=== PATIENT | male | born 1995 | race Two or more races ===

== ENCOUNTER 2022-06-11 19:53 | Emergency (ER) | payer MEDICAID, OTHER ==
[~2022-06-11] VITALS: Ht 170.2 cm; Wt 143.0 kg
[2022-06-12 00:11] VITALS: BP 139/90
[2022-06-12] MEDS ORDERED: PRED20TA2 PO (00:23)
[2022-06-12] MEDS ORDERED: methylPREDNISolone SOD SUCC 125 MG/2 ML VL IM ONE (00:30)
[2022-06-12] MEDS ORDERED: diphenhdrAMINE HCL 25 MG CAP PO ONE (00:30)
== END 2022-06-12 01:24 | disposition home or self-care (01) ==
LOC: ER 19:56
DX: L50.0 Allergic urticaria (principal)
CPT/HCPCS: 96372; 99283; J2930